=== PATIENT | male | born 1995 ===

== ENCOUNTER 2017-02-26 05:26 | Emergency (ER) | payer SELFPAY ==
[2017-02-26 06:02] VITALS: BP 140/80; PULSE 97; RESP 17; TEMP 98.6
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
[2017-02-26 06:57] VITALS: O2SAT 97
== END 2017-02-26 06:40 | disposition left against medical advice (07) ==
LOC: C.ER 05:26
DX: Z03.89 Encounter for observation for other suspected diseases and conditions ruled out (principal); Y04.0XXA Assault by unarmed brawl or fight, initial encounter